=== PATIENT | female | born 1955 | race Caucasian/White ===

== ENCOUNTER 2016-09-14 19:43 | Emergency (ER) | payer BC ==
[~2016-09-14] VITALS: Ht 167.6 cm; Wt 72.5 kg
[2016-09-14 20:15] VITALS: BP 132/80; PULSE 67; RESP 16; O2SAT 97
[2016-09-14] MEDS ORDERED: SODIUM CHLORIDE 0.9% FLUSH 5 ML FLUSH IVF PRN (20:15)
[2016-09-14] MEDS ORDERED: SODIUM CHLORID 0.9% 500 ML INJ 500 ML IV ONE (20:15)
[2016-09-14 20:16] VITALS: BP 132/80; PULSE 65; RESP 16; TEMP 97.9; O2SAT 95
[2016-09-14 20:20] VITALS: RESP 16; O2SAT 97
--- NOTE | 2016-09-14 20:20 | PD ---
HPI Chief Complaint: Chest Pain Time Seen by Provider: 20:12 Travel History International Travel<30 days: No Contact w/Intl Traveler<30days: No Traveled to known affect area: No History of Present Illness HPI The patient is a 61-year-old female who has no history of heart disease who complains of a dull ache type pain to the left of the mid sternal area since 6 PM tonight. She denies any nausea, shortness of breath, diaphoresis or radiation of pain. She does not smoke. Her pain as a 5/10. She did not take any aspirin or any other medication. She has had this pain on and off for years but this is the longest it lasted. [facility] Social History Tobacco Use: No Allergies-Medications (Allergen,Severity, Reaction): Coded Allergies: Celebrex (Verified Allergy, Severe, weakness, 09/14/16) Reported Meds & Prescriptions Reported Meds & Active Scripts Active No Active Prescriptions or Reported Medications Review of Systems Except as stated in HPI: all other systems reviewed are Neg Physical Exam Narrative GENERAL: The patient is alert, oriented 3 and minimal apparent distress with her left mid sternal discomfort. SKIN: Warm and dry. HEAD: Atraumatic. Normocephalic. EYES: Pupils equal and round. No scleral icterus. No injection or drainage. ENT: No nasal bleeding or discharge. Mucous membranes pink and moist. NECK: Trachea midline. No JVD. CARDIOVASCULAR: Regular rate and rhythm. No murmur appreciated. RESPIRATORY: No accessory muscle use. Clear to auscultation. Breath sounds equal bilaterally. I cannot reproduce the patient's pain by pressing on the chest wall where the patient perceives her pain. GASTROINTESTINAL: Abdomen soft, non-tender, nondistended. Hepatic and splenic margins not palpable. MUSCULOSKELETAL: No obvious deformities. No clubbing. No cyanosis. No edema. NEUROLOGICAL: Awake and alert. No obvious cranial nerve deficits. Motor grossly within normal limits. Normal speech. PSYCHIATRIC: Appropriate mood and affect; insight and judgment normal. Data Data Last Documented VS Vital Signs Date Time Temp Pulse Resp B/P Pulse Ox O2 Delivery O2 Flow Rate FiO2 09/14/16 20:20 97 Room Air 09/14/16 20:20 16 09/14/16 20:16 97.9 65 132/80 Orders Electrocardiogram (09/14/16 20:13) Ckmb (Isoenzyme) Profile (09/14/16 20:13) Complete Blood Count With Diff (09/14/16 20:13) Comprehensive Metabolic Panel (09/14/16 20:13) Magnesium (Mg) (09/14/16 20:13) Prothrombin Time / Inr (Pt) (09/14/16 20:13) Act Partial Throm Time (Ptt) (09/14/16 20:13) Troponin I (09/14/16 20:13) Ecg Monitoring (09/14/16 20:13) Bilateral Bp Monitoring (09/14/16 20:13) Iv Access Insert/Monitor (09/14/16 20:13) Oximetry (09/14/16 20:13) Oxygen Administration (09/14/16 20:13) Sodium Chloride 0.9% Flush (Ns Flush) (09/14/16 20:15) Sodium Chlorid 0.9% 500 Ml Inj (Ns 500 M (09/14/16 20:15) Chest, Pa & Lat (09/14/16 20:13) CKMB (09/14/16 20:20) CKMB% (09/14/16 20:20) Labs Laboratory Tests Test 09/14/16 20:20 White Blood Count 6.3 TH/MM3 Red Blood Count 4.86 MIL/MM3 Hemoglobin 14.2 GM/DL Hematocrit 41.2 % Mean Corpuscular Volume 84.8 FL Mean Corpuscular Hemoglobin 29.1 PG Mean Corpuscular Hemoglobin 34.3 % Concent Red Cell Distribution Width 12.1 % Platelet Count 249 TH/MM3 Mean Platelet Volume 7.1 FL Neutrophils (%) (Auto) 62.9 % Lymphocytes (%) (Auto) 30.6 % Monocytes (%) (Auto) 5.0 % Eosinophils (%) (Auto) 1.1 % Basophils (%) (Auto) 0.4 % Neutrophils # (Auto) 4.0 TH/MM3 Lymphocytes # (Auto) 1.9 TH/MM3 Monocytes # (Auto) 0.3 TH/MM3 Eosinophils # (Auto) 0.1 TH/MM3 Basophils # (Auto) 0.0 TH/MM3 CBC Comment DIFF FINAL Differential Comment Prothrombin Time 10.3 SEC Prothromb Time International 0.9 RATIO Ratio Activated Partial 28.8 SEC Thromboplast Time Sodium Level 140 MEQ/L Potassium Level 3.5 MEQ/L Chloride Level 102 MEQ/L Carbon Dioxide Level 26.5 MEQ/L Anion Gap 12 MEQ/L Blood Urea Nitrogen 19 MG/DL Creatinine 0.70 MG/DL Estimat Glomerular Filtration 85 ML/MIN Rate Random Glucose 104 MG/DL Calcium Level 9.0 MG/DL Magnesium Level 2.1 MG/DL Total Bilirubin 0.5 MG/DL Aspartate Amino Transf 15 U/L (AST/SGOT) Alanine Aminotransferase 25 U/L (ALT/SGPT) Alkaline Phosphatase 153 U/L Total Creatine Kinase 159 U/L Creatine Kinase MB 2.9 NG/ML Troponin I LESS THAN 0.02 NG/ML Total Protein 7.1 GM/DL Albumin 4.0 GM/DL [facility] Medical Decision Making Medical Screen Exam Complete: Yes Emergency Medical Condition: Yes Medical Record Reviewed: Yes Interpretation(s) The EKG shows sinus rhythm with a rate of [address] elevation or depression. The complete metabolic profile shows a BUN of 19, GFR 65, alkaline phosphatase of 153 but is otherwise unremarkable. The cardiac enzymes are normal. The chest x-ray shows no evidence of acute cardiopulmonary disease. The CBC is normal. The coagulation profile is normal. Differential Diagnosis Chest wall pain, pleuritic pain, esophageal pain, gastrointestinal pain, acute coronary syndrome, atypical chest pain Narrative Course The patient appears to have atypical chest pain. The patient has no problem taking Motrin or Aleve in the past. Plan: Patient be given Motrin, 600 mg 3 times daily. She should follow-up with her primary care physician, hopefully this week. Diagnosis Primary Impression: Atypical chest pain Additional Instructions: Take the Motrin regularly, 1 tablet 3 times a day. Usually this will result in the pain going away in 2-3 days. Follow-up this week with [facility] primary care physician. Med/Other Pt SpecificInfo: Prescription(s) given Scripts Ibuprofen 600 Mg [id number] Mg PO TID #40 TAB Ref 0 Prov:Christopher Lerner MD 09/14/16 Disposition: 01 DISCHARGE HOME Condition: Stable Christopher Lerner MD Sep 14, 2016 20:20
[2016-09-14 20:30] VITALS: BP_SYST 112; BP_SYST 115; BP_DIAS 70; PULSE 64; RESP 16; O2SAT 97
[2016-09-14 20:34] LABS: BASOPHIL % 0.4 % (0.0-2.0); EOSINOPHIL # 0.1 TH/MM3 (0-0.4); EOSINOPHIL % 1.1 % (0.0-4.0); HEMATOCRIT 41.2 % (35.0-46.0); HEMO FLAGS DIFF FINAL; LYMPH % 30.6 % (9.0-44.0); LYMPHOCYTE # 1.9 TH/MM3 (1.0-4.8); MEAN CELL VOLUME 84.8 FL (80.0-100.0); MEAN CORPUSCULAR HEMOGLOBIN 29.1 PG (27.0-34.0); MEAN CORPUSCULAR HGB CONC 34.3 % (32.0-36.0); NEUT % 62.9 % (16.0-70.0); PLATELET COUNT 249 TH/MM3 (150-450); RED BLOOD COUNT 4.86 MIL/MM3 (4.00-5.30); RED CELL DISTRIBUTION WIDTH 12.1 % (11.6-17.2); WHITE BLOOD COUNT 6.3 TH/MM3 (4.0-11.0)
[2016-09-14 20:43] LABS: BLOOD UREA NITROGEN 19 MG/DL (7-18); CHLORIDE 102 MEQ/L (98-107); GLOMERULAR FILTRATION RATE 85 ML/MIN (>89); POTASSIUM 3.5 MEQ/L (3.5-5.1); SODIUM (NA) 140 MEQ/L (136-145)
[2016-09-14 20:48] LABS: APTT (PATIENT) 28.8 SEC (24.3-30.1); INTERNATIONAL NORMALIZED RATIO 0.9 RATIO; PROTHROMBIN TIME - PATIENT 10.3 SEC (9.8-11.6)
--- NOTE | 2016-09-14 21:05 | RADHPO ---
EXAM DATE/TIME: 09/14/2016 20:45 [facility] COMPARISON: No previous studies available for comparison. INDICATIONS : Chest pains MEDICAL HISTORY : None. SURGICAL HISTORY : None. ENCOUNTER: Initial ACUITY: 1 day PAIN SCORE: 5/10 LOCATION: Bilateral chest FINDINGS: PA and lateral views of the chest demonstrate the lungs to be symmetrically aerated without evidence of mass, infiltrate or effusion. The cardiomediastinal contours are unremarkable. Osseous structure s are intact. CONCLUSION: No evidence of acute cardiopulmonary disease. Edwin Shelton MD on September 14, 2016 at 21:04 Board Certified Radiologist. This report was verified electronically.
[2016-09-14 21:38] LABS: ALKALINE PHOSPHATASE 153 U/L (45-117); ALT (GPT) 25 U/L (10-53); ANION GAP 12 MEQ/L (5-15); AST (GOT) 15 U/L (15-37); BICARBONATE 26.5 MEQ/L (21.0-32.0); CREATINE KINASE 159 U/L (26-192); MAGNESIUM 2.1 MG/DL (1.5-2.5); TOTAL BILIRUBIN ADULT 0.5 MG/DL (0.2-1.0)
[2016-09-14 21:52] LABS: CKMB 2.9 NG/ML (0.5-3.6)
[2016-09-14] MEDS ORDERED: IBUP-232 PO (22:18)
[2016-09-14 22:32] VITALS: BP 114/67; PULSE 60; RESP 16; O2SAT 96
--- NOTE | 2016-09-15 23:52 | EKG ---
Date Performed: 09/14/2016 Time Performed: 19:52:18 PTAGE: 61 years EKG: Sinus rhythm with borderline 1st degree A-V block Borderline ECG NO PREVIOUS TRACING DOCTOR: Harley Cruz Interpretating Date/Time 09/15/2016 23:45:34
== END 2016-09-14 22:51 | disposition home or self-care (01) ==
LOC: PHED 19:43
DX: R07.89 Other chest pain (principal)
CPT/HCPCS: 71020; 80053; 82550; 82552; 83735; 84484; 85025; 85610; 85730; 93005; 96360; 99285; J7040